=== PATIENT | male | born 1940 | race Native Hawaiian/Other Pacific Islander ===

== ENCOUNTER 2019-06-03 13:08 | Inpatient (IN) | payer MEDICARE, MEDICAID ==
[~2019-06-03] VITALS: Ht 152.4 cm; Wt 55.3 kg
--- NOTE | 2019-06-03 13:34 | NUR ---
Telephone report given to Prasanth Elliott patient will be taken via wheel chair. AAOx3. vitals stable.
--- NOTE | 2019-06-03 13:50 | NUR ---
received patient from ER , noted patient's 5150 will at 1400, spoke with dr. Hamilton and transferred patient back to ER for further eval.
[2019-06-03] MEDS ORDERED: DICL100G16 TP (13:57)
[2019-06-03] MEDS ORDERED: DONE10TA44 PO (13:57)
[2019-06-03] MEDS ORDERED: METF-440 PO (13:57)
[2019-06-03] MEDS ORDERED: AMLO5TAB9 PO (13:57)
[2019-06-03] MEDS ORDERED: NAPR-1009 PO (13:57)
[2019-06-03] MEDS ORDERED: LOSA1TAB42 PO (13:57)
[2019-06-03] MEDS ORDERED: ACET-2605 PO (13:57)
--- NOTE | 2019-06-03 14:20 | NUR ---
Pt was brought back to ER via w/c by a POWER MULE OPERATOR [place] [facility] I spoke with charge nurse Ricardo who stated the pt's hold has and she can not accept the pt. I asked the POWER MULE OPERATOR to stay with the pt as he is in the hallway and an elopement risk but she just left the pt in the hallway and left. I notified the nursing supervisor phosphoric acid.
--- NOTE | 2019-06-03 14:30 | NUR ---
Director of psych services Laura, [facility] dept manager planning Kari and nursing claims adjuster supervisor True here to eval the situation. Pt was placed back in room 5a until further instructions.
--- NOTE | 2019-06-03 14:30 | NUR ---
at this this time patient brought back from [facility], due hold been . heating unit installer and SW in the unit.
--- NOTE | 2019-06-03 14:40 | NUR ---
Pt is currently in room 5a, eating lunch and watching TV.
--- NOTE | 2019-06-03 14:58 | NUR ---
Patient able to provide his 's cell phone # .
--- NOTE | 2019-06-03 15:11 | NUR ---
As per Laura DOHERTY patient will be admitted as voluntary hold and will be follow up by Dr. Ash. pt. taken back to [facility] as ordered.
--- NOTE | 2019-06-03 15:15 | NUR ---
patient signed voluntary at 1515pm, will Admitted patient under care of Dr. Huff.
--- NOTE | 2019-06-03 15:15 | NUR ---
GPS: Nursing Notes: Admitted Notes: Patient was transferred from [facility] to [facility] [place] [facility] per Laura De Dios, ship harbor pilot and Kari Ramachandran, Cleaning Porter U came to the unit as Voluntary admission, staff used [employer] phone for Cantonese interpretation, patient is A/Ox4, denies any SI/HI, denies any AH/VH, cooperative with staff, stated, "I did not jump from any balcony... I was just having a conversation..", "I was not eating enough..", depressed mood and anxious affect, hyperverbal, getting irritable when questioned by staff, episodes of standing by exit door, ambulatory, self care, continue to monitor for safety, accepting psychiatrist, Dr. Huff informed of admission.
[2019-06-03 15:22] VITALS: BP 156/87
[2019-06-03] MEDS ORDERED: MAGNESIUM HYDROXIDE 30 ML LIQUID UDC PO PRN (16:00)
[2019-06-03] MEDS ORDERED: MAG HYDROX/AL HYDROX/SIMETH 30 ML LIQUID UDC PO PRN (16:00)
[2019-06-03] MEDS ORDERED: LORAZEPAM 0.5 MG TABLET PO PRN (16:00)
[2019-06-03] MEDS ORDERED: BLOOD SUGAR DIAGNOSTIC 1 EACH STRIP VI ONE (16:00)
[2019-06-03 20:12] VITALS: BP 155/80
[2019-06-03 20:30] VITALS: BP 147/76
[2019-06-03] MEDS ORDERED: hydrALAZINE HCL 25 MG TABLET PO PRN (21:30)
[2019-06-03] MEDS ORDERED: NAPROXEN 500 MG TABLET PO PRN (21:30)
[2019-06-04] MEDS: TEMAZEPAM 7.5 MG CAPSULE PO PRN (01:08)
[2019-06-04 07:48] LABS: BASOPHILS % (AUTO) 0.8 % (0.0-2.0); EOSINOPHILS # (AUTO) 0.1 K/uL (0.0-0.7); HEMATOCRIT 45.4 % (36.7-47.1); HEMOGLOBIN 15.2 g/dL (12.5-16.3); LYMPHOCYTES # (AUTO) 1.7 K/uL (20.0-40.0); LYMPHOCYTES % (AUTO) 28.7 % (20.5-51.5); MEAN CORPUSCULAR HEMOGLOBIN 31.9 uug (23.8-33.4); MEAN CORPUSCULAR HGB CONC 33 g/dL (32.5-36.3); MEAN CORPUSCULAR VOLUME 95.3 fL (73.0-96.2); MONOCYTES # (AUTO) 0.8 K/uL (2.0-10.0); MONOCYTES % (AUTO) 13.3 % (0.0-11.0); NEUTROPHILS # (AUTO) 3.2 K/uL (1.8-8.9); NEUTROPHILS % (AUTO) 55.2 % (38.5-71.5); PLATELET COUNT (AUTO) 261 K/uL (152-348); RED BLOOD CELL COUNT(AUTO) 4.76 MIL/uL (4.06-5.63); WHITE BLOOD COUNT (AUTO) 5.8 K/uL (3.6-10.2)
[2019-06-04 08:02] LABS: ALANINE AMINOTRANSFERASE 37 U/L (16-63); ALKALINE PHOSPHATASE 56 U/L (50-136); ASPARTATE AMINOTRANSFERASE 35 U/L (15-37); BILIRUBIN,TOTAL 0.9 mg/dL (0.2-1.0); CARBON DIOXIDE 27 mmol/L (21-32); CHLORIDE 101 mmol/L (98-107); CREATININE 0.9 mg/dL (0.6-1.3); GLUCOSE 124 mg/dL (74-106); MAGNESIUM 2.2 mg/dL (1.8-2.4); PHOSPHOROUS 3.1 mg/dL (2.5-4.9); POTASSIUM 3.6 mmol/L (3.5-5.1); UREA NITROGEN, BLOOD 19 mg/dL (7-18)
[2019-06-04 08:14] LABS: THYROID STIMULATING HORMONE 1.678 mIU/mL (0.358-3.740)
[2019-06-04] MEDS: METFORMIN HCL 500 MG TABLET PO SCH ×2 (08:30→17:19)
[2019-06-04] MEDS: ESCITALOPRAM OXALATE 10 MG TABLET PO SCH (08:31)
[2019-06-04] MEDS: AMLODIPINE 5 MG TABLET PO SCH (08:37)
[2019-06-04] MEDS: LOSARTAN POTASSIUM 50 MG TABLET PO SCH (08:38)
[2019-06-04] MEDS: HYDROCHLOROTHIAZIDE 12.5 MG CAPSULE PO SCH (08:40)
[2019-06-04] MEDS ORDERED: Medication Not On Formulary EA (Losartan/Hydrochlorothiazide (Losartan-Hctz 100-12.5 Mg PO SCH (09:00)
[2019-06-04 09:36] VITALS: BP 149/81
[2019-06-04 16:17] VITALS: BP 141/74
--- NOTE | 2019-06-04 18:18 | NUR ---
PATIENT NOT IN ANY DISTRESS, LANGUAGE BARRIER, NEEDS MET, NO AGGRESSIVE BEHAVIOR NOTED, COOPERATIVE WITH PLAN OF CARE, STAYED IN ROOM MOST OF TIME, TOLERATED MEDS AND MEALS WELL, NO SIGNS OR SYMPTOMS OF HYPO/HYPERGLYCEMIA NOTED
[2019-06-04] MEDS: QUETIAPINE FUMARATE 25 MG TABLET PO SCH (20:18)
[2019-06-04 21:20] VITALS: BP 130/73
--- NOTE | 2019-06-04 22:00 | NUR ---
received to care, lying in bed, asleep, but awake, pleasant and calm, upon approach. compliant with medications and staff direction. as of 2200, he appears to be asleep. no distress noted. will continue to monitor closely.
--- NOTE | 2019-06-05 06:00 | NUR ---
slept 8.5 hours. continues to sleep. no distress noted.
[2019-06-05] MEDS: HYDROCHLOROTHIAZIDE 12.5 MG CAPSULE PO SCH (09:42)
[2019-06-05] MEDS: AMLODIPINE 5 MG TABLET PO SCH (09:42)
[2019-06-05] MEDS: ESCITALOPRAM OXALATE 10 MG TABLET PO SCH (09:42)
[2019-06-05] MEDS: METFORMIN HCL 500 MG TABLET PO SCH ×2 (09:43→17:27)
[2019-06-05] MEDS: LOSARTAN POTASSIUM 50 MG TABLET PO SCH (09:43)
[2019-06-05 09:51] VITALS: BP 132/67
--- NOTE | 2019-06-05 14:42 | NUR ---
Initial Discharge Plan: Patient is a 79 year old male who currently resides alone at his apartment [[address], [address], [place] [address]]. Per daughter Piedad, family plans to have the patient move in to daughter's home [[address] [place] [address]; Ph. [phone]]upon discharge. electrical linesworker will continue to meet with patient and collaborate with patient, family, and MD to formulate a proper and safe discharge plan.
[2019-06-05 16:10] VITALS: BP 161/84
--- NOTE | 2019-06-05 17:45 | NUR ---
Gps/Answering Service Agent- Urine specimen obtained, sent to lab. Making needs known in simple Chinese and uses gestures . Compliant with routine meds. no agitation ,denies S.I. Pleasant affect.
[2019-06-05 18:35] LABS: *BILIRUBIN,URIN NEGATIVE (NEGATIVE); *BLOOD, URINE NEGATIVE (NEGATIVE); *CLARITY,URINE CLEAR (CLEAR); *COLOR,URINE YELLOW (YELLOW); *KETONES,URINE NEGATIVE (NEGATIVE); *UROBILINOGEN,URINE 0.2 E.U./dl (NORMAL); LEUKOCYTE ESTERASE ,URINE NEGATIVE (NEGATIVE); NITRITE, URINE NEGATIVE (NEGATIVE); PH,URINE 5.5 (5.0-8.0); UGLUCOSE NEGATIVE (NEGATIVE)
[2019-06-05] MEDS: QUETIAPINE FUMARATE 25 MG TABLET PO SCH (20:19)
[2019-06-05 20:51] VITALS: BP 134/67
--- NOTE | 2019-06-05 22:00 | NUR ---
received to care, lying in bed, pleasant and calm, upon approach. compliant with medications and staff direction. as of 2200, he appears to be asleep. no distress noted. will continue to monitor closely.
--- NOTE | 2019-06-06 06:00 | NUR ---
slept 7.5 hours. continues to sleep. no distress noted.
[2019-06-06] MEDS: ESCITALOPRAM OXALATE 10 MG TABLET PO SCH (08:07)
[2019-06-06] MEDS: METFORMIN HCL 500 MG TABLET PO SCH ×2 (08:07→17:04)
[2019-06-06] MEDS: LOSARTAN POTASSIUM 50 MG TABLET PO SCH (08:24)
[2019-06-06] MEDS: AMLODIPINE 5 MG TABLET PO SCH (08:24)
[2019-06-06] MEDS: HYDROCHLOROTHIAZIDE 12.5 MG CAPSULE PO SCH (08:25)
[2019-06-06 08:40] VITALS: BP 122/68
[2019-06-06 14:55] VITALS: BP 145/79
[2019-06-06] MEDS: QUETIAPINE FUMARATE 25 MG TABLET PO SCH (20:06)
[2019-06-06 20:12] VITALS: BP 142/79
--- NOTE | 2019-06-06 20:30 | NUR ---
RECEIVED PATIENT IN HIS ROOM. HE IS NOTED AWAKE, CALM AND PLEASANT UPON APPROACHED. HE IS NOTED WITH BRIGHT AFFECT, CHEERFUL AND HE IS ABLE TO MAKE GOOD EYE CONTACT. V/S STABLE AT THIS TIME. PATIENT IS COMPLIANT WITH MEDICATION REGIMENT. SAFETY AND FALL PRECAUTION IN PLACE, PT IS REASSURED FOR HIS SAFETY. WILL CONTINUE TO MONITOR.
[2019-06-07 07:30] VITALS: BP 145/79
[2019-06-07] MEDS: ESCITALOPRAM OXALATE 10 MG TABLET PO SCH (08:12)
[2019-06-07] MEDS: LOSARTAN POTASSIUM 50 MG TABLET PO SCH (08:12)
[2019-06-07] MEDS: AMLODIPINE 5 MG TABLET PO SCH (08:12)
[2019-06-07] MEDS: METFORMIN HCL 500 MG TABLET PO SCH ×2 (08:13→18:19)
[2019-06-07] MEDS: HYDROCHLOROTHIAZIDE 12.5 MG CAPSULE PO SCH (08:14)
[2019-06-07 15:04] VITALS: BP 130/57
--- NOTE | 2019-06-07 17:38 | NUR ---
Gps/Dehydrator Operator- Continue to make needs known with simple gestures and simple Faroese. Continue to be compliance w/ routine medications. No complaints noted.
[2019-06-07 20:13] VITALS: BP 140/61
[2019-06-07] MEDS: QUETIAPINE FUMARATE 25 MG TABLET PO SCH (20:37)
[2019-06-08 07:30] VITALS: BP 121/72
[2019-06-08] MEDS: ESCITALOPRAM OXALATE 10 MG TABLET PO SCH (08:14)
[2019-06-08] MEDS: AMLODIPINE 5 MG TABLET PO SCH (08:15)
[2019-06-08] MEDS: HYDROCHLOROTHIAZIDE 12.5 MG CAPSULE PO SCH (08:15)
[2019-06-08] MEDS: METFORMIN HCL 500 MG TABLET PO SCH ×2 (08:15→17:05)
[2019-06-08] MEDS: LOSARTAN POTASSIUM 50 MG TABLET PO SCH (08:15)
[2019-06-08 15:25] VITALS: BP 136/72
--- NOTE | 2019-06-08 16:06 | NUR ---
Gps/Bottled Beverage Inspector- Pleasant effect, interacting with staff , speaks Georgian but able to use gestures to make his needs known.
[2019-06-08 20:10] VITALS: BP 140/77
[2019-06-08] MEDS: QUETIAPINE FUMARATE 25 MG TABLET PO SCH (20:13)
[2019-06-08] MEDS: TEMAZEPAM 7.5 MG CAPSULE PO PRN (22:01)
[2019-06-08] MEDS: ACETAMINOPHEN 325 MG TABLET PO PRN (22:01)
[2019-06-09 07:30] VITALS: BP 164/77
[2019-06-09] MEDS: HYDROCHLOROTHIAZIDE 12.5 MG CAPSULE PO SCH (08:37)
[2019-06-09] MEDS: METFORMIN HCL 500 MG TABLET PO SCH ×2 (08:37→17:05)
[2019-06-09] MEDS: AMLODIPINE 5 MG TABLET PO SCH (08:37)
[2019-06-09] MEDS: LOSARTAN POTASSIUM 50 MG TABLET PO SCH (08:38)
[2019-06-09] MEDS: ESCITALOPRAM OXALATE 10 MG TABLET PO SCH (08:38)
[2019-06-09] MEDS ORDERED: CLONIDINE HCL 0.1 MG TABLET PO PRN (10:15)
[2019-06-09 15:05] VITALS: BP 126/65
[2019-06-09 20:00] VITALS: BP 158/78
[2019-06-09] MEDS: QUETIAPINE FUMARATE 25 MG TABLET PO SCH (20:15)
--- NOTE | 2019-06-10 06:00 | NUR ---
slept 7.25 hours, total. is now awake. assisted with AM care, and shower. no distress noted.
[2019-06-10 07:30] VITALS: BP 122/74
[2019-06-10] MEDS: ESCITALOPRAM OXALATE 10 MG TABLET PO SCH (08:24)
[2019-06-10] MEDS: METFORMIN HCL 500 MG TABLET PO SCH ×2 (08:24→17:25)
[2019-06-10] MEDS: LOSARTAN POTASSIUM 50 MG TABLET PO SCH (08:25)
[2019-06-10] MEDS: AMLODIPINE 5 MG TABLET PO SCH (08:25)
[2019-06-10] MEDS: HYDROCHLOROTHIAZIDE 12.5 MG CAPSULE PO SCH (08:25)
--- NOTE | 2019-06-10 14:20 | NUR ---
FIREARMS REPORT: Cylinder Machine Operator Pulp Drier completed and submitted a [employer] firearms report for 5150 DTS certification. A copy of report has been placed in patient chart.
[2019-06-10 15:33] VITALS: BP 131/76
[2019-06-10 19:56] VITALS: BP 157/54
[2019-06-10] MEDS: QUETIAPINE FUMARATE 25 MG TABLET PO SCH (20:05)
--- NOTE | 2019-06-11 05:39 | NUR ---
slept 6.5 hours, total. continues to sleep. no distress noted.
[2019-06-11] MEDS: METFORMIN HCL 500 MG TABLET PO SCH ×2 (08:16→17:01)
[2019-06-11] MEDS: ESCITALOPRAM OXALATE 10 MG TABLET PO SCH (08:18)
[2019-06-11] MEDS: LOSARTAN POTASSIUM 50 MG TABLET PO SCH (08:25)
[2019-06-11] MEDS: AMLODIPINE 5 MG TABLET PO SCH (08:26)
[2019-06-11] MEDS: HYDROCHLOROTHIAZIDE 12.5 MG CAPSULE PO SCH (08:27)
[2019-06-11 15:16] VITALS: BP 128/66
--- NOTE | 2019-06-11 18:10 | NUR ---
PATIENT ALERT ORIENTED, COMPLIANT WITH MEDICATION, DENIESSI AN HI,
--- NOTE | 2019-06-11 20:00 | NUR ---
RECEIVED PATIENT LYING IN BED. AOX3. CALM AND COOPERATIVE. NO ANXIETY NOTED. NO SI/HI. VS WNL. CONTINUE TO MONITOR.
[2019-06-11 20:28] VITALS: BP 125/68
[2019-06-11] MEDS: QUETIAPINE FUMARATE 25 MG TABLET PO SCH (20:28)
--- NOTE | 2019-06-12 07:30 | NUR ---
RECIEVED PT LYING IN BED, AWAKE, ALERT AND ORIENTED TO HIS NAME AND PLACE. VERY PLEASANT AND COOPERATIVE. SPEAKS ONLY AMHARIC. NO APPARENT DISTRESS NOTED.
[2019-06-12 08:13] VITALS: BP 152/69
[2019-06-12] MEDS: ESCITALOPRAM OXALATE 10 MG TABLET PO SCH (09:15)
[2019-06-12] MEDS: METFORMIN HCL 500 MG TABLET PO SCH ×2 (09:15→17:23)
[2019-06-12] MEDS: LOSARTAN POTASSIUM 50 MG TABLET PO SCH (09:16)
[2019-06-12] MEDS: AMLODIPINE 5 MG TABLET PO SCH (09:17)
[2019-06-12] MEDS: HYDROCHLOROTHIAZIDE 12.5 MG CAPSULE PO SCH (09:19)
--- NOTE | 2019-06-12 10:00 | NUR ---
PT IS AMBULATING WELL. BUT MOSTLY STAYS IN HIS ROOM.
[2019-06-12 15:53] VITALS: BP 105/54
[2019-06-12] MEDS: QUETIAPINE FUMARATE 25 MG TABLET PO SCH (20:27)
--- NOTE | 2019-06-12 21:30 | NUR ---
PATIENT RECEIVED IN BED AWAKE. PATIENT IS CALM AND COOPERATIVE. NO AGGRESSIVE OR COMBATIVE BEHAVIOR NOTED WILL CONTINUE TO MONITOR AND REDIRECT. PATIENT DENIES SI/HI WILL CONTINUE TO MONITOR, PATIENT REMAINS ISOLATIVE AND WITHDRAWN. BED IN LOWEST POSITION, BED LOCKED, AND BED ALARM ON WHILE IN BED. PATIENT DENIES PAIN AT THIS TIME, WILL CONTINUE TO MONITOR. PATIENT COMPLAINT WITH MEDICATION.
[2019-06-12 22:04] VITALS: BP 114/60
[2019-06-13 07:30] VITALS: BP 125/65
--- NOTE | 2019-06-13 08:32 | NUR ---
Discharge Note: Patient will be discharged into the care of his son-in-law, Sam Burgess [[phone]]. Son-in-law will be providing transportation to patients daughter, Piedad Burgess, home at 1:00pm [[address] [place] [address]; Ph. [phone]]. Patient is alert and orientedx3-4, denies suicidal ideation, and agrees with discharge plan. Patient will follow up with his primary care physician, Dr. Doreen Cameron at [facility] [[address] [place] [address]; Ph. [phone] [[facility]] on July 17, 2019 at 8:30am. A continuing care packet was faxed to Dr. Doreen Gordillo office [[phone]] ATTN Marcela. Patient was also provided with mental health resources including [facility] Crisis Line [ ] and the National Suicide Prevention Lifeline [ ].
[2019-06-13] MEDS: METFORMIN HCL 500 MG TABLET PO SCH (08:38)
[2019-06-13] MEDS: HYDROCHLOROTHIAZIDE 12.5 MG CAPSULE PO SCH (08:38)
[2019-06-13] MEDS: LOSARTAN POTASSIUM 50 MG TABLET PO SCH (08:38)
[2019-06-13 08:39] VITALS: BP 125/65
[2019-06-13] MEDS: ESCITALOPRAM OXALATE 10 MG TABLET PO SCH (08:39)
[2019-06-13] MEDS: AMLODIPINE 5 MG TABLET PO SCH (08:39)
[2019-06-13] MEDS: ACETAMINOPHEN 325 MG TABLET PO PRN (09:25)
--- NOTE | 2019-06-13 13:15 | NUR ---
Gps/Firefighter Type One- Piedad (daughter) in to pick and shovel man patient to be transported home. Reviewed discharge instructions, prescriptions, diet, safety, skin care, follow up with Primary Doctor , both verbalized understanding, daughter translating. All belongings given back to patient, no complaints noted. Patient in good spirit, adhered to tx plan .Discharged to home via private car accompanied by Piedad(daughter)
== END 2019-06-13 13:15 | disposition home or self-care (01) | DRG 885 ==
LOC: ER 13:08 → GPS 13:57
PROVIDERS: ADMIT Psychiatry & Neurology Psychiatry; ATTEND Nurse Practitioner Acute Care
DX: F33.2 Major depressive disorder, recurrent severe without psychotic features (principal); N17.0 Acute kidney failure with tubular necrosis; E86.0 Dehydration; E11.9 Type 2 diabetes mellitus without complications; F03.90 Unspecified dementia, unspecified severity, without behavioral disturbance, psychotic disturbance, mood disturbance, and anxiety; M19.90 Unspecified osteoarthritis, unspecified site
CPT/HCPCS: 36415; 83735; 84100; 84443; 85025; A4663